=== PATIENT | male | born 1950 | race Caucasian/White ===

== ENCOUNTER 2019-04-20 11:51 | Emergency (ER) | payer MEDICARE ==
[~2019-04-20] VITALS: Ht 182.9 cm; Wt 120.0 kg
--- NOTE | 2019-04-20 12:23 | NUR ---
PROSTHETICS ASSISTANT: PT TO ROOM FROM LOBBY VIA WHEELCHAIR. TRIAGE TO BE DONE IN ROOM
--- NOTE | 2019-04-20 12:47 | NUR ---
PT WAS UNDERNEATH HOUSE AND SLIPPED AND FELL. PT HIT HIS RIGHT KNEE AND IS CO OF KNEE PAIN WITH MOVEMENT. PT DENIES LOC DURING FALL. DENIES HITTING HEAD. ICE BAG PROVIDED.
[2019-04-20 13:20] VITALS: BP 142/79
--- NOTE | 2019-04-20 13:21 | NUR ---
PT RESTING IN HOSPITAL BED. BEDSIDE. NO REQUESTS AT THIS TIME
== END 2019-04-20 14:21 | disposition home or self-care (01) ==
LOC: ED 14:10
DX: M70.41 Prepatellar bursitis, right knee (principal); E78.5 Hyperlipidemia, unspecified; W01.0XXA Fall on same level from slipping, tripping and stumbling without subsequent striking against object, initial encounter; Y93.89 Activity, other specified; Y92.098 Other place in other non-institutional residence as the place of occurrence of the external cause; Y99.8 Other external cause status
CPT/HCPCS: 99283